=== PATIENT | male | born 1970 | race Caucasian/White ===

== ENCOUNTER 2018-10-31 07:29 | Inpatient (IN) | payer OTHER ==
[2018-10-31] MEDS: ASPIRIN 81 MG TAB PO (09:00)
[2018-10-31] MEDS: NITROGLYCERIN 2% 1 GM OINT PKT TD (09:01)
[2018-10-31 09:54] LABS: ADD MAN DIFF? NO
[2018-10-31 10:00] LABS: BASOPHILS % 0.6 % (0.0-2.0); EOSINOPHILS # 0.1 10^3/ul (0.0-0.5); EOSINOPHILS % 1.2 % (0.0-7.0); HEMATOCRIT 33.4 % (42.0-52.0); HEMOGLOBIN 10.3 g/dl (14.0-18.0); LYMPHOCYTES # 1.4 10^3/ul (0.8-2.9); MEAN CORPUSCULAR HEMOGLOBIN 27.9 pg (29.0-33.0); MEAN CORPUSCULAR HGB CONC 30.8 g/dl (32.0-37.0); MEAN CORPUSCULAR VOLUME 90.5 fl (82.0-101.0); MEAN PLATELET VOLUME 9.2 fl (7.4-10.4); MONOCYTE # 0.4 10^3/ul (0.3-0.9); MONOCYTES % 5.9 % (0.0-11.0); NEUTROPHIL # 4.5 10^3/ul (1.6-7.5); NEUTROPHILS % 70.1 % (39.0-77.0); PLATELET COUNT 166 10^3/UL (140-415); RED BLOOD COUNT 3.69 10^6/ul (4.70-6.10); RED CELL DISTRIBUTION WIDTH 14.2 % (11.5-14.5)
[2018-10-31 10:00] LABS: WHITE BLOOD COUNT 6.4 10^3/ul (4.8-10.8)
[2018-10-31 10:13] LABS: ALANINE AMINOTRANSFERASE 47 IU/L (13-69); ALBUMIN 3.9 g/dl (3.3-4.9); ALBUMIN/GLOBULIN RATIO 1.02; ALKALINE PHOSPHATASE 131 IU/L (42-121); ANION GAP 8 (5-13); ASPARTATE AMINO TRANSFERASE 37 IU/L (15-46); BILIRUBIN,INDIRECT 0.6 mg/dl (0-1.1); BILIRUBIN,TOTAL 0.6 mg/dl (0.2-1.3); BLOOD UREA NITROGEN 13 mg/dl (7-20); CALCIUM 9.3 mg/dl (8.4-10.2); CARBON DIOXIDE 31 mmol/L (21-31); CHLORIDE 103 mmol/L (97-110); CREATININE 0.75 mg/dl (0.61-1.24); Estimated GFR > 60 mL/min (>60); GLUCOSE 127 mg/dl (70-220); POTASSIUM 4.5 mmol/L (3.5-5.1); SODIUM 142 mmol/L (135-144); TOTAL PROTEIN 7.7 g/dl (6.1-8.1)
[2018-10-31 10:25] LABS: TROPONIN-I < 0.012 ng/ml (0.000-0.120)
[2018-10-31] MEDS: HYDROmorphONE 1 MG/ML SYG IV (10:39)
[2018-10-31] MEDS: ONDANSETRON 4 MG INJ IV (10:39)
[2018-10-31] MEDS: VANCOMYCIN 1 GM (PMX) 250 ML IVPB (10:39)
[2018-10-31 11:16] LABS: B-TYPE NATRIURETIC PEPTIDE 162 PG/ML (0-125)
[2018-10-31] MEDS ORDERED: ACETAMINOPHEN 325 MG TAB PO (11:30)
[2018-10-31] MEDS ORDERED: ONDANSETRON 4 MG INJ IV (11:30)
[2018-10-31] MEDS ORDERED: NACL 0.9% 3 ML SYG IV (13:00)
[2018-10-31] MEDS ORDERED: GLUCAGON 1 MG INJ IM (13:30)
[2018-10-31] MEDS ORDERED: GLUCOSE GEL 15 GRAM TUBE PO ×2 (13:30)
[2018-10-31] MEDS ORDERED: GLUCOSE GEL 15 GRAM TUBE BUCCAL (13:30)
[2018-10-31] MEDS ORDERED: DEXTROSE 50% 50 ML SYRINGE IV ×2 (13:30)
[2018-10-31] MEDS ORDERED: VANCOMYCIN IV PER PHARMACY XX (13:30)
[2018-10-31 13:52] LABS: TROPONIN-I < 0.012 ng/ml (0.000-0.120)
[2018-10-31] MEDS: HYDROCODONE/APAP (5/325) TAB PO (14:16)
[2018-10-31] MEDS: CEFEPIME 2GM/50 ML (PMX) 50 ML IVPB ×2 (14:16→20:54)
[2018-10-31] MEDS: ACETAMINOPHEN 325 MG TAB PO (15:14)
[2018-10-31] MEDS ORDERED: NITROGLYCERIN (SL) 0.4 MG TAB SL (16:00)
[2018-10-31] MEDS: FUROSEMIDE 20 MG INJ IV (16:11)
[2018-10-31] MEDS: VANCOMYCIN HCL 1.75 GM in SOD CHLORIDE 0.9% 500 ML IVPB (16:11)
[2018-10-31] MEDS: FUROSEMIDE 40 MG INJ IV (17:35)
[2018-10-31] MEDS: INSULIN ASPART [NOVOLOG] 3 ML PEN SC ×2 (17:39→21:00)
[2018-10-31 17:53] LABS: ADD UMIC YES; UR ASCORBIC ACID NEGATIVE (NEGATIVE); UR BILIRUBIN (Dip) NEGATIVE (NEGATIVE); UR BLOOD (Dip) 2+ mg/dL (NEGATIVE); UR CLARITY CLEAR (CLEAR); UR COLOR YELLOW (YELLOW); UR GLUCOSE (Dip) NEGATIVE (NEGATIVE); UR KETONES (Dip) NEGATIVE (NEGATIVE); UR LEUKOCYTE ESTERASE (Dip) NEGATIVE Leu/ul (NEGATIVE); UR NITRITE (Dip) NEGATIVE (NEGATIVE); UR RBC 27 /HPF (0-5); UR SPECIFIC GRAVITY (Dip) 1.014 (1.003-1.030); UR TOTAL PROTEIN (Dip) NEGATIVE (NEGATIVE); UR UROBILINOGEN (Dip) NEGATIVE (NEGATIVE); UR WBC 2 /HPF (0-5)
[2018-10-31] MEDS ORDERED: FUROSEMIDE 40 MG INJ IV (18:00)
[2018-10-31 18:48] LABS: TROPONIN-I < 0.012 ng/ml (0.000-0.120)
[2018-10-31] MEDS: traMADol 50 MG TAB PO (20:50)
[2018-10-31] MEDS ORDERED: CEFEPIME 2GM/50 ML (PMX) 50 ML IVPB (21:00)
[2018-10-31] MEDS: INSULIN GLARGINE [LANTus] (100 UNITS/ML) SYG SC (21:00)
[2018-11-01] MEDS: HYDROCODONE/APAP (5/325) TAB PO ×2 (01:26→08:04)
[2018-11-01 01:54] LABS: TROPONIN-I < 0.012 ng/ml (0.000-0.120)
[2018-11-01] MEDS: ACCU-CHEK XX (02:00)
[2018-11-01] MEDS: PANTOPRAZOLE (EC) 40 MG TAB PO (05:04)
[2018-11-01] MEDS: ACETAMINOPHEN 325 MG TAB PO (05:04)
[2018-11-01] MEDS: VANCOMYCIN HCL 1.75 GM in SOD CHLORIDE 0.9% 500 ML IVPB ×2 (05:16→16:24)
[2018-11-01 06:39] LABS: ADD MAN DIFF? NO
[2018-11-01 06:43] LABS: WHITE BLOOD COUNT 6.6 10^3/ul (4.8-10.8)
[2018-11-01 06:43] LABS: BASOPHILS % 0.3 % (0.0-2.0); EOSINOPHILS # 0.1 10^3/ul (0.0-0.5); EOSINOPHILS % 1.7 % (0.0-7.0); HEMATOCRIT 30.8 % (42.0-52.0); HEMOGLOBIN 9.8 g/dl (14.0-18.0); LYMPHOCYTES # 1.3 10^3/ul (0.8-2.9); LYMPHOCYTES % 19.9 % (15.0-51.0); MEAN CORPUSCULAR HEMOGLOBIN 28.4 pg (29.0-33.0); MEAN CORPUSCULAR HGB CONC 31.8 g/dl (32.0-37.0); MEAN CORPUSCULAR VOLUME 89.3 fl (82.0-101.0); MEAN PLATELET VOLUME 9.3 fl (7.4-10.4); MONOCYTE # 0.5 10^3/ul (0.3-0.9); NEUTROPHIL # 4.6 10^3/ul (1.6-7.5); NEUTROPHILS % 69.8 % (39.0-77.0); PLATELET COUNT 170 10^3/UL (140-415); RED BLOOD COUNT 3.45 10^6/ul (4.70-6.10); RED CELL DISTRIBUTION WIDTH 14.4 % (11.5-14.5)
[2018-11-01 07:01] LABS: HEMOGLOBIN A1C 6.5 % (0-5.9)
[2018-11-01 07:09] LABS: CHOL/HDL RATIO 2.8 RATIO; HDL CHOLESTEROL 42 mg/dl (28-71); LDL CHOLESTEROL,CALCULATED 60 mg/dl; TRIGLYCERIDES 94 mg/dl (0-149)
[2018-11-01 07:09] LABS: CHOLESTEROL 121 mg/dl (100-200)
[2018-11-01 07:11] LABS: ALANINE AMINOTRANSFERASE 44 IU/L (13-69); ALBUMIN 3.6 g/dl (3.3-4.9); ALKALINE PHOSPHATASE 114 IU/L (42-121); ANION GAP 6 (5-13); ASPARTATE AMINO TRANSFERASE 37 IU/L (15-46); BILIRUBIN,INDIRECT 0.7 mg/dl (0-1.1); BILIRUBIN,TOTAL 0.7 mg/dl (0.2-1.3); BLOOD UREA NITROGEN 16 mg/dl (7-20); CALCIUM 8.8 mg/dl (8.4-10.2); CARBON DIOXIDE 34 mmol/L (21-31); CHLORIDE 101 mmol/L (97-110); CREATININE 0.78 mg/dl (0.61-1.24); Estimated GFR > 60 mL/min (>60); GLUCOSE 118 mg/dl (70-220); PHOSPHORUS 4.9 mg/dl (2.5-4.9); POTASSIUM 4.3 mmol/L (3.5-5.1); SODIUM 141 mmol/L (135-144); TOTAL PROTEIN 7.2 g/dl (6.1-8.1)
[2018-11-01 07:16] LABS: TROPONIN-I < 0.012 ng/ml (0.000-0.120)
[2018-11-01] MEDS: ASPIRIN 81 MG TAB PO (08:04)
[2018-11-01] MEDS: CEFEPIME 2GM/50 ML (PMX) 50 ML IVPB ×2 (08:04→21:14)
[2018-11-01] MEDS: FUROSEMIDE 40 MG INJ IV (08:05)
[2018-11-01] MEDS: INSULIN ASPART [NOVOLOG] 3 ML PEN SC ×4 (08:41→20:29)
[2018-11-01] MEDS: traMADol 50 MG TAB PO ×2 (10:12→21:20)
[2018-11-01] MEDS: GABAPENTIN 300 MG CAP PO ×2 (14:10→20:30)
[2018-11-01] MEDS: morphine 2 MG INJ IV ×3 (14:11→23:24)
[2018-11-01 17:19] LABS: AADO2 Arterial 44.5 mmHg (7.0-24.0); Allen Test ACCEPTAB; Arterial Base Excess 7.8 mmol/L (-3.0-3); Arterial Blood Gas Oxygen Sat 96.5 mmHG (95.0-98.0); Arterial COHb 0.3 % (0.0-3.0); Arterial Fraction of Oxyhgb 95.9 % (93.0-99.0); Arterial HCO3 33.8 mmol/L (22.0-26.0); Arterial MetHb 0.3 % (0.0-1.5); MODE NASAL CANNULA; Site Right Radial
[2018-11-01] MEDS: TERAZOSIN 1 MG CAP PO (20:30)
[2018-11-01] MEDS: INSULIN GLARGINE [LANTus] (100 UNITS/ML) SYG SC (21:11)
[2018-11-01] MEDS: ALBUTEROL 0.083% (NEB) 2.5 MG/3 ML AMP HHN (23:03)
[2018-11-02] MEDS: ACCU-CHEK XX (01:41)
[2018-11-02 03:43] LABS: VANCOMYCIN,TROUGH 11.2 ug/ml (10.0-20.0)
[2018-11-02 03:51] LABS: ANION GAP 6 (5-13); BLOOD UREA NITROGEN 18 mg/dl (7-20); CALCIUM 9.2 mg/dl (8.4-10.2); CARBON DIOXIDE 33 mmol/L (21-31); CHLORIDE 98 mmol/L (97-110); CREATININE 0.78 mg/dl (0.61-1.24); Estimated GFR > 60 mL/min (>60); GLUCOSE 156 mg/dl (70-220); POTASSIUM 4.1 mmol/L (3.5-5.1); SODIUM 137 mmol/L (135-144)
[2018-11-02] MEDS: VANCOMYCIN HCL 1.75 GM in SOD CHLORIDE 0.9% 500 ML IVPB ×2 (04:44→17:16)
[2018-11-02] MEDS: PANTOPRAZOLE (EC) 40 MG TAB PO (05:34)
[2018-11-02] MEDS: morphine 2 MG INJ IV ×5 (05:35→23:02)
[2018-11-02 08:18] LABS: ADD MAN DIFF? NO
[2018-11-02 08:22] LABS: WHITE BLOOD COUNT 6.3 10^3/ul (4.8-10.8)
[2018-11-02 08:22] LABS: BASOPHILS % 0.3 % (0.0-2.0); EOSINOPHILS # 0.1 10^3/ul (0.0-0.5); EOSINOPHILS % 1.7 % (0.0-7.0); HEMOGLOBIN 10.4 g/dl (14.0-18.0); LYMPHOCYTES # 1.2 10^3/ul (0.8-2.9); MEAN CORPUSCULAR HEMOGLOBIN 28.5 pg (29.0-33.0); MEAN CORPUSCULAR HGB CONC 31.5 g/dl (32.0-37.0); MEAN CORPUSCULAR VOLUME 90.4 fl (82.0-101.0); MEAN PLATELET VOLUME 9.1 fl (7.4-10.4); MONOCYTE # 0.4 10^3/ul (0.3-0.9); MONOCYTES % 6.6 % (0.0-11.0); NEUTROPHIL # 4.6 10^3/ul (1.6-7.5); NEUTROPHILS % 72.2 % (39.0-77.0); PLATELET COUNT 158 10^3/UL (140-415); RED BLOOD COUNT 3.65 10^6/ul (4.70-6.10); RED CELL DISTRIBUTION WIDTH 14.2 % (11.5-14.5)
[2018-11-02 08:54] LABS: INR 1.01; PROTIME 13.4 Sec (11.9-14.9)
[2018-11-02] MEDS: CEFEPIME 2GM/50 ML (PMX) 50 ML IVPB ×2 (10:25→20:15)
[2018-11-02] MEDS: GABAPENTIN 300 MG CAP PO ×2 (10:31→20:13)
[2018-11-02] MEDS: ASPIRIN 81 MG TAB PO (10:32)
[2018-11-02] MEDS: FUROSEMIDE 40 MG INJ IV (10:33)
[2018-11-02] MEDS: INSULIN ASPART [NOVOLOG] 3 ML PEN SC ×4 (11:02→20:19)
[2018-11-02] MEDS: LINAGLIPTIN 5 MG TABLET PO (14:40)
[2018-11-02] MEDS: ENOXAPARIN 40 MG/0.4 ML SYG SC (14:49)
[2018-11-02] MEDS: TERAZOSIN 1 MG CAP PO (20:15)
[2018-11-02] MEDS: INSULIN GLARGINE [LANTus] (100 UNITS/ML) SYG SC (20:34)
[2018-11-02] MEDS: ALBUTEROL 0.083% (NEB) 2.5 MG/3 ML AMP HHN (22:00)
[2018-11-03] MEDS: ACCU-CHEK XX (01:34)
[2018-11-03] MEDS: VANCOMYCIN HCL 1.75 GM in SOD CHLORIDE 0.9% 500 ML IVPB ×2 (03:37→15:44)
[2018-11-03] MEDS: morphine 2 MG INJ IV ×4 (03:38→19:56)
[2018-11-03] MEDS: PANTOPRAZOLE (EC) 40 MG TAB PO (05:55)
[2018-11-03] MEDS: IBUPROFEN 600 MG TAB PO (05:55)
[2018-11-03 06:04] LABS: ADD MAN DIFF? NO
[2018-11-03 06:11] LABS: BASOPHILS % 0.4 % (0.0-2.0); EOSINOPHILS # 0.2 10^3/ul (0.0-0.5); EOSINOPHILS % 2.2 % (0.0-7.0); HEMATOCRIT 32.5 % (42.0-52.0); LYMPHOCYTES # 1.5 10^3/ul (0.8-2.9); LYMPHOCYTES % 22.6 % (15.0-51.0); MEAN CORPUSCULAR HEMOGLOBIN 28.1 pg (29.0-33.0); MEAN CORPUSCULAR HGB CONC 30.8 g/dl (32.0-37.0); MEAN CORPUSCULAR VOLUME 91.3 fl (82.0-101.0); MEAN PLATELET VOLUME 9.6 fl (7.4-10.4); MONOCYTE # 0.4 10^3/ul (0.3-0.9); MONOCYTES % 6.6 % (0.0-11.0); NEUTROPHIL # 4.5 10^3/ul (1.6-7.5); NEUTROPHILS % 67.8 % (39.0-77.0); PLATELET COUNT 165 10^3/UL (140-415); RED BLOOD COUNT 3.56 10^6/ul (4.70-6.10); RED CELL DISTRIBUTION WIDTH 14.4 % (11.5-14.5)
[2018-11-03 06:11] LABS: WHITE BLOOD COUNT 6.7 10^3/ul (4.8-10.8)
[2018-11-03 07:02] LABS: IRON 68 ug/dl (35-150)
[2018-11-03 07:12] LABS: % IRON SATURATION 19 % SAT (22-52); TOTAL IRON BINDING CAPACITY 351 ug/dl (241-421)
[2018-11-03 07:18] LABS: ANION GAP 5 (5-13); BLOOD UREA NITROGEN 20 mg/dl (7-20); CARBON DIOXIDE 34 mmol/L (21-31); CHLORIDE 99 mmol/L (97-110); CREATININE 0.77 mg/dl (0.61-1.24); Estimated GFR > 60 mL/min (>60); GLUCOSE 151 mg/dl (70-220); POTASSIUM 4.1 mmol/L (3.5-5.1); SODIUM 138 mmol/L (135-144)
[2018-11-03] MEDS: INSULIN ASPART [NOVOLOG] 3 ML PEN SC ×4 (07:55→19:54)
[2018-11-03] MEDS: LINAGLIPTIN 5 MG TABLET PO (08:06)
[2018-11-03] MEDS: GABAPENTIN 300 MG CAP PO ×2 (08:06→19:56)
[2018-11-03] MEDS: ASPIRIN 81 MG TAB PO (08:06)
[2018-11-03] MEDS: FUROSEMIDE 40 MG INJ IV ×2 (08:07→17:32)
[2018-11-03] MEDS: ENOXAPARIN 40 MG/0.4 ML SYG SC (08:29)
[2018-11-03] MEDS: CEFEPIME 2GM/50 ML (PMX) 50 ML IVPB ×2 (09:15→19:55)
[2018-11-03] MEDS: ALBUTEROL 0.083% (NEB) 2.5 MG/3 ML AMP HHN ×2 (09:24→22:11)
[2018-11-03 12:48] LABS: OCCULT BLOOD STOOL NEGATIVE (NEGATIVE)
[2018-11-03] MEDS: TERAZOSIN 1 MG CAP PO (19:56)
[2018-11-03] MEDS: INSULIN GLARGINE [LANTus] (100 UNITS/ML) SYG SC (20:02)
[2018-11-03] MEDS: SOD FERRIC GLUC COMPLX 125 MG in SOD CHLORIDE 0.9% 100 ML IVPB (21:49)
[2018-11-03] MEDS: HYDROCODONE/APAP (5/325) TAB PO (22:10)
[2018-11-04] MEDS: ACCU-CHEK XX (01:58)
[2018-11-04] MEDS: morphine 2 MG INJ IV ×4 (03:01→19:59)
[2018-11-04] MEDS: VANCOMYCIN HCL 1.75 GM in SOD CHLORIDE 0.9% 500 ML IVPB ×2 (04:28→15:35)
[2018-11-04] MEDS: FUROSEMIDE 40 MG INJ IV ×2 (04:28→17:29)
[2018-11-04] MEDS: PANTOPRAZOLE (EC) 40 MG TAB PO (04:28)
[2018-11-04 06:23] LABS: ADD MAN DIFF? NO
[2018-11-04 06:34] LABS: WHITE BLOOD COUNT 6.3 10^3/ul (4.8-10.8)
[2018-11-04 06:34] LABS: BASOPHILS % 0.5 % (0.0-2.0); EOSINOPHILS # 0.2 10^3/ul (0.0-0.5); EOSINOPHILS % 2.7 % (0.0-7.0); HEMATOCRIT 34.9 % (42.0-52.0); HEMOGLOBIN 10.6 g/dl (14.0-18.0); LYMPHOCYTES # 1.6 10^3/ul (0.8-2.9); LYMPHOCYTES % 25.7 % (15.0-51.0); MEAN CORPUSCULAR HEMOGLOBIN 27.6 pg (29.0-33.0); MEAN CORPUSCULAR HGB CONC 30.4 g/dl (32.0-37.0); MEAN CORPUSCULAR VOLUME 90.9 fl (82.0-101.0); MEAN PLATELET VOLUME 9.5 fl (7.4-10.4); MONOCYTE # 0.5 10^3/ul (0.3-0.9); MONOCYTES % 7.3 % (0.0-11.0); NEUTROPHILS % 63.6 % (39.0-77.0); PLATELET COUNT 194 10^3/UL (140-415); RED BLOOD COUNT 3.84 10^6/ul (4.70-6.10); RED CELL DISTRIBUTION WIDTH 14.6 % (11.5-14.5)
[2018-11-04 06:53] LABS: ANION GAP 9 (5-13); BLOOD UREA NITROGEN 24 mg/dl (7-20); CALCIUM 9.2 mg/dl (8.4-10.2); CARBON DIOXIDE 33 mmol/L (21-31); CHLORIDE 99 mmol/L (97-110); Estimated GFR > 60 mL/min (>60); GLUCOSE 155 mg/dl (70-220); SODIUM 141 mmol/L (135-144)
[2018-11-04] MEDS: INSULIN ASPART [NOVOLOG] 3 ML PEN SC ×4 (07:52→20:06)
[2018-11-04] MEDS: GABAPENTIN 300 MG CAP PO ×2 (08:08→19:59)
[2018-11-04] MEDS: ASPIRIN 81 MG TAB PO (08:08)
[2018-11-04] MEDS: LINAGLIPTIN 5 MG TABLET PO (08:08)
[2018-11-04] MEDS: ENOXAPARIN 40 MG/0.4 ML SYG SC (08:22)
[2018-11-04] MEDS: CEFEPIME 2GM/50 ML (PMX) 50 ML IVPB ×2 (10:39→20:21)
[2018-11-04] MEDS: SOD FERRIC GLUC COMPLX 125 MG in SOD CHLORIDE 0.9% 100 ML IVPB (12:29)
[2018-11-04] MEDS: ALBUTEROL 0.083% (NEB) 2.5 MG/3 ML AMP HHN ×2 (13:06→20:50)
[2018-11-04] MEDS: HYDROCODONE/APAP (5/325) TAB PO (15:35)
[2018-11-04] MEDS: TERAZOSIN 1 MG CAP PO (19:59)
[2018-11-04] MEDS: INSULIN GLARGINE [LANTus] (100 UNITS/ML) SYG SC (20:05)
[2018-11-05] MEDS: morphine 2 MG INJ IV ×6 (00:05→23:23)
[2018-11-05] MEDS: HYDROCODONE/APAP (5/325) TAB PO (01:48)
[2018-11-05] MEDS: ACCU-CHEK XX (01:53)
[2018-11-05] MEDS: VANCOMYCIN HCL 1.75 GM in SOD CHLORIDE 0.9% 500 ML IVPB ×2 (04:19→16:04)
[2018-11-05] MEDS: PANTOPRAZOLE (EC) 40 MG TAB PO (06:05)
[2018-11-05] MEDS: FUROSEMIDE 40 MG INJ IV ×2 (06:05→17:38)
[2018-11-05 06:11] LABS: ADD MAN DIFF? NO
[2018-11-05 06:22] LABS: BASOPHILS % 0.3 % (0.0-2.0); EOSINOPHILS # 0.2 10^3/ul (0.0-0.5); EOSINOPHILS % 3.2 % (0.0-7.0); HEMATOCRIT 31.7 % (42.0-52.0); LYMPHOCYTES # 1.7 10^3/ul (0.8-2.9); LYMPHOCYTES % 25.8 % (15.0-51.0); MEAN CORPUSCULAR HEMOGLOBIN 28.2 pg (29.0-33.0); MEAN CORPUSCULAR HGB CONC 31.5 g/dl (32.0-37.0); MEAN CORPUSCULAR VOLUME 89.5 fl (82.0-101.0); MEAN PLATELET VOLUME 9.4 fl (7.4-10.4); MONOCYTE # 0.5 10^3/ul (0.3-0.9); MONOCYTES % 7.1 % (0.0-11.0); NEUTROPHIL # 4.2 10^3/ul (1.6-7.5); NEUTROPHILS % 63.3 % (39.0-77.0); PLATELET COUNT 175 10^3/UL (140-415); RED BLOOD COUNT 3.54 10^6/ul (4.70-6.10); RED CELL DISTRIBUTION WIDTH 14.6 % (11.5-14.5)
[2018-11-05 06:22] LABS: WHITE BLOOD COUNT 6.6 10^3/ul (4.8-10.8)
[2018-11-05 06:51] LABS: ANION GAP 7 (5-13); BLOOD UREA NITROGEN 21 mg/dl (7-20); CALCIUM 9.1 mg/dl (8.4-10.2); CARBON DIOXIDE 31 mmol/L (21-31); CHLORIDE 102 mmol/L (97-110); CREATININE 0.64 mg/dl (0.61-1.24); Estimated GFR > 60 mL/min (>60); GLUCOSE 117 mg/dl (70-220); POTASSIUM 4.2 mmol/L (3.5-5.1); SODIUM 140 mmol/L (135-144)
[2018-11-05] MEDS: INSULIN ASPART [NOVOLOG] 3 ML PEN SC ×4 (08:00→20:51)
[2018-11-05] MEDS: ASPIRIN 81 MG TAB PO (08:15)
[2018-11-05] MEDS: LINAGLIPTIN 5 MG TABLET PO (08:16)
[2018-11-05] MEDS: GABAPENTIN 300 MG CAP PO ×2 (08:16→20:46)
[2018-11-05] MEDS: CEFEPIME 2GM/50 ML (PMX) 50 ML IVPB (08:44)
[2018-11-05] MEDS: ENOXAPARIN 40 MG/0.4 ML SYG SC (08:47)
[2018-11-05] MEDS: SOD FERRIC GLUC COMPLX 125 MG in SOD CHLORIDE 0.9% 100 ML IVPB (13:41)
[2018-11-05] MEDS: TERAZOSIN 1 MG CAP PO (20:47)
[2018-11-05] MEDS: INSULIN GLARGINE [LANTus] (100 UNITS/ML) SYG SC (20:50)
[2018-11-05] MEDS: ALBUTEROL 0.083% (NEB) 2.5 MG/3 ML AMP HHN (22:13)
[2018-11-06] MEDS: ACETAMINOPHEN 325 MG TAB PO (01:21)
[2018-11-06] MEDS: ACCU-CHEK XX (02:00)
[2018-11-06] MEDS: VANCOMYCIN HCL 1.75 GM in SOD CHLORIDE 0.9% 500 ML IVPB (03:46)
[2018-11-06] MEDS: morphine 2 MG INJ IV ×5 (03:46→22:33)
[2018-11-06] MEDS: PANTOPRAZOLE (EC) 40 MG TAB PO (05:38)
[2018-11-06] MEDS: FUROSEMIDE 40 MG INJ IV ×3 (05:39→17:00)
[2018-11-06 07:16] LABS: ANION GAP 10 (5-13); BLOOD UREA NITROGEN 23 mg/dl (7-20); CALCIUM 8.7 mg/dl (8.4-10.2); CARBON DIOXIDE 29 mmol/L (21-31); CHLORIDE 102 mmol/L (97-110); CREATININE 0.68 mg/dl (0.61-1.24); Estimated GFR > 60 mL/min (>60); GLUCOSE 128 mg/dl (70-220); POTASSIUM 3.7 mmol/L (3.5-5.1); SODIUM 141 mmol/L (135-144)
[2018-11-06] MEDS: INSULIN ASPART [NOVOLOG] 3 ML PEN SC ×4 (08:00→20:14)
[2018-11-06] MEDS: GABAPENTIN 300 MG CAP PO ×2 (08:37→20:13)
[2018-11-06] MEDS: LINAGLIPTIN 5 MG TABLET PO (08:37)
[2018-11-06] MEDS: ASPIRIN 81 MG TAB PO (08:37)
[2018-11-06] MEDS: ENOXAPARIN 40 MG/0.4 ML SYG SC (08:41)
[2018-11-06] MEDS: DOXYCYCLINE 100 MG TAB PO ×2 (09:52→20:12)
[2018-11-06 11:04] LABS: ANION GAP 10 (5-13); BLOOD UREA NITROGEN 22 mg/dl (7-20); CALCIUM 8.8 mg/dl (8.4-10.2); CARBON DIOXIDE 30 mmol/L (21-31); CHLORIDE 101 mmol/L (97-110); CREATININE 0.67 mg/dl (0.61-1.24); Estimated GFR > 60 mL/min (>60); GLUCOSE 175 mg/dl (70-220); POTASSIUM 3.8 mmol/L (3.5-5.1); SODIUM 141 mmol/L (135-144)
[2018-11-06] MEDS: ALBUTEROL 0.083% (NEB) 2.5 MG/3 ML AMP HHN ×2 (12:41→22:28)
[2018-11-06] MEDS: HYDROCODONE/APAP (5/325) TAB PO (16:36)
[2018-11-06] MEDS: TERAZOSIN 1 MG CAP PO (20:13)
[2018-11-06] MEDS: INSULIN GLARGINE [LANTus] (100 UNITS/ML) SYG SC (20:15)
[2018-11-07] MEDS: ACCU-CHEK XX (02:00)
[2018-11-07] MEDS: HYDROCODONE/APAP (5/325) TAB PO ×2 (02:25→23:20)
[2018-11-07] MEDS: ALBUTEROL 0.083% (NEB) 2.5 MG/3 ML AMP HHN ×3 (04:50→22:19)
[2018-11-07] MEDS: PANTOPRAZOLE (EC) 40 MG TAB PO (05:13)
[2018-11-07 05:50] LABS: ADD MAN DIFF? NO
[2018-11-07] MEDS: FUROSEMIDE 40 MG INJ IV ×3 (05:55→17:17)
[2018-11-07 05:56] LABS: WHITE BLOOD COUNT 6.9 10^3/ul (4.8-10.8)
[2018-11-07 05:56] LABS: BASOPHILS % 0.4 % (0.0-2.0); EOSINOPHILS # 0.2 10^3/ul (0.0-0.5); EOSINOPHILS % 2.2 % (0.0-7.0); HEMATOCRIT 32.7 % (42.0-52.0); HEMOGLOBIN 10.1 g/dl (14.0-18.0); LYMPHOCYTES # 1.5 10^3/ul (0.8-2.9); LYMPHOCYTES % 20.9 % (15.0-51.0); MEAN CORPUSCULAR HEMOGLOBIN 28.2 pg (29.0-33.0); MEAN CORPUSCULAR HGB CONC 30.9 g/dl (32.0-37.0); MEAN CORPUSCULAR VOLUME 91.3 fl (82.0-101.0); MEAN PLATELET VOLUME 9.8 fl (7.4-10.4); MONOCYTE # 0.5 10^3/ul (0.3-0.9); MONOCYTES % 7.6 % (0.0-11.0); NEUTROPHIL # 4.8 10^3/ul (1.6-7.5); NEUTROPHILS % 68.6 % (39.0-77.0); PLATELET COUNT 161 10^3/UL (140-415); RED BLOOD COUNT 3.58 10^6/ul (4.70-6.10); RED CELL DISTRIBUTION WIDTH 14.6 % (11.5-14.5)
[2018-11-07 06:11] LABS: ANION GAP 6 (5-13); BLOOD UREA NITROGEN 27 mg/dl (7-20); CALCIUM 9.3 mg/dl (8.4-10.2); CARBON DIOXIDE 33 mmol/L (21-31); CHLORIDE 102 mmol/L (97-110); CREATININE 0.74 mg/dl (0.61-1.24); Estimated GFR > 60 mL/min (>60); GLUCOSE 131 mg/dl (70-220); POTASSIUM 3.7 mmol/L (3.5-5.1); SODIUM 141 mmol/L (135-144)
[2018-11-07 06:13] LABS: PHOSPHORUS 4.9 mg/dl (2.5-4.9)
[2018-11-07 06:13] LABS: MAGNESIUM 1.9 mg/dl (1.7-2.5)
[2018-11-07] MEDS: morphine 2 MG INJ IV ×4 (07:53→21:14)
[2018-11-07] MEDS: INSULIN ASPART [NOVOLOG] 3 ML PEN SC ×4 (07:56→21:00)
[2018-11-07] MEDS: DOXYCYCLINE 100 MG TAB PO ×2 (07:56→21:13)
[2018-11-07] MEDS: LINAGLIPTIN 5 MG TABLET PO (07:56)
[2018-11-07] MEDS: GABAPENTIN 300 MG CAP PO ×2 (07:56→21:13)
[2018-11-07] MEDS: ASPIRIN 81 MG TAB PO (07:56)
[2018-11-07] MEDS: ENOXAPARIN 40 MG/0.4 ML SYG SC (07:59)
[2018-11-07] MEDS: TERAZOSIN 1 MG CAP PO (21:13)
[2018-11-07] MEDS: INSULIN GLARGINE [LANTus] (100 UNITS/ML) SYG SC (21:15)
[2018-11-08] MEDS: morphine 2 MG INJ IV ×5 (01:29→20:45)
[2018-11-08] MEDS: ACCU-CHEK XX (02:00)
[2018-11-08] MEDS: IBUPROFEN 600 MG TAB PO (03:28)
[2018-11-08] MEDS: PANTOPRAZOLE (EC) 40 MG TAB PO (05:49)
[2018-11-08] MEDS: HYDROCODONE/APAP (5/325) TAB PO ×2 (05:50→23:16)
[2018-11-08] MEDS: FUROSEMIDE 40 MG INJ IV ×2 (05:50→17:51)
[2018-11-08 06:06] LABS: ANION GAP 7 (5-13); BLOOD UREA NITROGEN 29 mg/dl (7-20); CALCIUM 9.6 mg/dl (8.4-10.2); CARBON DIOXIDE 33 mmol/L (21-31); CHLORIDE 100 mmol/L (97-110); CREATININE 0.79 mg/dl (0.61-1.24); Estimated GFR > 60 mL/min (>60); GLUCOSE 138 mg/dl (70-220); POTASSIUM 3.7 mmol/L (3.5-5.1); SODIUM 140 mmol/L (135-144)
[2018-11-08] MEDS: INSULIN ASPART [NOVOLOG] 3 ML PEN SC ×4 (07:50→20:43)
[2018-11-08] MEDS: DOXYCYCLINE 100 MG TAB PO ×2 (08:05→20:44)
[2018-11-08] MEDS: GABAPENTIN 300 MG CAP PO ×2 (08:05→20:45)
[2018-11-08] MEDS: ASPIRIN 81 MG TAB PO (08:05)
[2018-11-08] MEDS: LINAGLIPTIN 5 MG TABLET PO (08:05)
[2018-11-08] MEDS: ENOXAPARIN 40 MG/0.4 ML SYG SC (08:06)
[2018-11-08] MEDS: DOCUSATE SODIUM 100 MG CAP PO (09:19)
[2018-11-08] MEDS: ALBUTEROL 0.083% (NEB) 2.5 MG/3 ML AMP HHN (14:07)
[2018-11-08] MEDS: TERAZOSIN 1 MG CAP PO (20:45)
[2018-11-08] MEDS: INSULIN GLARGINE [LANTus] (100 UNITS/ML) SYG SC (20:50)
[2018-11-09] MEDS: morphine 2 MG INJ IV ×5 (01:40→20:42)
[2018-11-09] MEDS: ACCU-CHEK XX (02:00)
[2018-11-09] MEDS: ALBUTEROL 0.083% (NEB) 2.5 MG/3 ML AMP HHN ×3 (02:15→21:51)
[2018-11-09] MEDS: PANTOPRAZOLE (EC) 40 MG TAB PO (06:15)
[2018-11-09] MEDS: FUROSEMIDE 40 MG INJ IV ×3 (06:17→17:21)
[2018-11-09 06:44] LABS: ANION GAP 7 (5-13); BLOOD UREA NITROGEN 29 mg/dl (7-20); CALCIUM 9.6 mg/dl (8.4-10.2); CARBON DIOXIDE 32 mmol/L (21-31); CHLORIDE 102 mmol/L (97-110); CREATININE 0.66 mg/dl (0.61-1.24); Estimated GFR > 60 mL/min (>60); GLUCOSE 131 mg/dl (70-220); POTASSIUM 3.7 mmol/L (3.5-5.1); SODIUM 141 mmol/L (135-144)
[2018-11-09 07:19] LABS: MAGNESIUM 1.8 mg/dl (1.7-2.5)
[2018-11-09] MEDS: INSULIN ASPART [NOVOLOG] 3 ML PEN SC ×4 (08:00→20:25)
[2018-11-09] MEDS: GABAPENTIN 300 MG CAP PO ×2 (08:12→20:24)
[2018-11-09] MEDS: ASPIRIN 81 MG TAB PO (08:13)
[2018-11-09] MEDS: LINAGLIPTIN 5 MG TABLET PO (08:13)
[2018-11-09] MEDS: DOXYCYCLINE 100 MG TAB PO ×2 (08:13→20:24)
[2018-11-09] MEDS: ENOXAPARIN 40 MG/0.4 ML SYG SC (08:15)
[2018-11-09] MEDS: HYDROCODONE/APAP (5/325) TAB PO (14:52)
[2018-11-09] MEDS: TERAZOSIN 1 MG CAP PO (20:25)
[2018-11-09] MEDS: INSULIN GLARGINE [LANTus] (100 UNITS/ML) SYG SC (20:28)
[2018-11-10] MEDS: morphine 2 MG INJ IV ×6 (01:23→22:45)
[2018-11-10] MEDS: ACCU-CHEK XX (01:34)
[2018-11-10] MEDS: PANTOPRAZOLE (EC) 40 MG TAB PO (05:57)
[2018-11-10] MEDS: FUROSEMIDE 40 MG INJ IV ×2 (05:58→17:19)
[2018-11-10 06:22] LABS: ANION GAP 7 (5-13); BLOOD UREA NITROGEN 29 mg/dl (7-20); CALCIUM 9.6 mg/dl (8.4-10.2); CARBON DIOXIDE 33 mmol/L (21-31); CHLORIDE 100 mmol/L (97-110); CREATININE 0.68 mg/dl (0.61-1.24); Estimated GFR > 60 mL/min (>60); GLUCOSE 136 mg/dl (70-220); POTASSIUM 3.6 mmol/L (3.5-5.1); SODIUM 140 mmol/L (135-144)
[2018-11-10] MEDS: INSULIN ASPART [NOVOLOG] 3 ML PEN SC ×4 (07:58→21:00)
[2018-11-10] MEDS: DOXYCYCLINE 100 MG TAB PO (08:07)
[2018-11-10] MEDS: GABAPENTIN 300 MG CAP PO ×2 (08:07→20:54)
[2018-11-10] MEDS: LINAGLIPTIN 5 MG TABLET PO (08:08)
[2018-11-10] MEDS: ASPIRIN 81 MG TAB PO (08:08)
[2018-11-10] MEDS: ENOXAPARIN 40 MG/0.4 ML SYG SC (08:09)
[2018-11-10] MEDS: ALBUTEROL 0.083% (NEB) 2.5 MG/3 ML AMP HHN (10:09)
[2018-11-10] MEDS: HYDROCODONE/APAP (5/325) TAB PO (17:18)
[2018-11-10] MEDS: INSULIN GLARGINE [LANTus] (100 UNITS/ML) SYG SC (20:52)
[2018-11-10] MEDS: TERAZOSIN 1 MG CAP PO (21:00)
[2018-11-11] MEDS: ALBUTEROL 0.083% (NEB) 2.5 MG/3 ML AMP HHN ×2 (00:37→22:11)
[2018-11-11] MEDS: ONDANSETRON 4 MG INJ IV (01:30)
[2018-11-11] MEDS: ACCU-CHEK XX (01:56)
[2018-11-11] MEDS: morphine 2 MG INJ IV ×5 (02:50→21:27)
[2018-11-11] MEDS: HYDROCODONE/APAP (5/325) TAB PO ×3 (05:27→23:42)
[2018-11-11] MEDS: PANTOPRAZOLE (EC) 40 MG TAB PO (06:11)
[2018-11-11] MEDS: FUROSEMIDE 40 MG INJ IV ×2 (06:16→17:35)
[2018-11-11] MEDS: INSULIN ASPART [NOVOLOG] 3 ML PEN SC ×4 (07:52→20:41)
[2018-11-11] MEDS: GABAPENTIN 300 MG CAP PO ×2 (08:21→21:27)
[2018-11-11] MEDS: ASPIRIN 81 MG TAB PO (08:22)
[2018-11-11] MEDS: LINAGLIPTIN 5 MG TABLET PO (08:22)
[2018-11-11] MEDS: ENOXAPARIN 40 MG/0.4 ML SYG SC (08:25)
[2018-11-11] MEDS: INSULIN GLARGINE [LANTus] (100 UNITS/ML) SYG SC (20:38)
[2018-11-11] MEDS: TERAZOSIN 1 MG CAP PO (21:28)
[2018-11-12] MEDS: ACCU-CHEK XX (01:27)
[2018-11-12] MEDS: morphine 2 MG INJ IV ×6 (01:41→23:53)
[2018-11-12] MEDS: ALBUTEROL 0.083% (NEB) 2.5 MG/3 ML AMP HHN ×2 (03:20→20:37)
[2018-11-12] MEDS: PANTOPRAZOLE (EC) 40 MG TAB PO (05:43)
[2018-11-12] MEDS: FUROSEMIDE 40 MG INJ IV (06:02)
[2018-11-12] MEDS: INSULIN ASPART [NOVOLOG] 3 ML PEN SC ×4 (08:00→20:29)
[2018-11-12] MEDS: ASPIRIN 81 MG TAB PO (08:08)
[2018-11-12] MEDS: LINAGLIPTIN 5 MG TABLET PO (08:08)
[2018-11-12] MEDS: GABAPENTIN 300 MG CAP PO ×2 (08:08→20:23)
[2018-11-12] MEDS: HYDROCODONE/APAP (5/325) TAB PO (08:08)
[2018-11-12] MEDS: ENOXAPARIN 40 MG/0.4 ML SYG SC (08:10)
[2018-11-12 08:13] LABS: ANION GAP 9 (5-13); BLOOD UREA NITROGEN 29 mg/dl (7-20); CALCIUM 9.8 mg/dl (8.4-10.2); CARBON DIOXIDE 32 mmol/L (21-31); CHLORIDE 99 mmol/L (97-110); CREATININE 0.75 mg/dl (0.61-1.24); Estimated GFR > 60 mL/min (>60); GLUCOSE 144 mg/dl (70-220); POTASSIUM 3.3 mmol/L (3.5-5.1); SODIUM 140 mmol/L (135-144)
[2018-11-12] MEDS: POTASSIUM CHLORIDE (SR) 20 MEQ TAB PO (12:38)
[2018-11-12] MEDS: FUROSEMIDE 40 MG TAB PO (17:24)
[2018-11-12] MEDS: TERAZOSIN 1 MG CAP PO (20:24)
[2018-11-12] MEDS: INSULIN GLARGINE [LANTus] (100 UNITS/ML) SYG SC (20:28)
[2018-11-13] MEDS: ACCU-CHEK XX (01:50)
[2018-11-13] MEDS: HYDROCODONE/APAP (5/325) TAB PO (02:36)
[2018-11-13] MEDS: morphine 2 MG INJ IV ×3 (04:30→15:01)
[2018-11-13] MEDS: PANTOPRAZOLE (EC) 40 MG TAB PO (05:27)
[2018-11-13] MEDS: FUROSEMIDE 40 MG TAB PO (05:28)
[2018-11-13 06:07] LABS: ANION GAP 9 (5-13); BLOOD UREA NITROGEN 26 mg/dl (7-20); CALCIUM 9.7 mg/dl (8.4-10.2); CARBON DIOXIDE 29 mmol/L (21-31); CHLORIDE 100 mmol/L (97-110); CREATININE 0.72 mg/dl (0.61-1.24); Estimated GFR > 60 mL/min (>60); GLUCOSE 165 mg/dl (70-220); POTASSIUM 3.6 mmol/L (3.5-5.1); SODIUM 138 mmol/L (135-144)
[2018-11-13] MEDS: INSULIN ASPART [NOVOLOG] 3 ML PEN SC ×2 (08:00→12:07)
[2018-11-13] MEDS: LINAGLIPTIN 5 MG TABLET PO (08:33)
[2018-11-13] MEDS: ASPIRIN 81 MG TAB PO (08:33)
[2018-11-13] MEDS: GABAPENTIN 300 MG CAP PO (08:33)
[2018-11-13] MEDS: ENOXAPARIN 40 MG/0.4 ML SYG SC (08:35)
== END 2018-11-13 16:18 | disposition home or self-care (01) | DRG 292 ==
LOC: 2NE 11-04 22:55 → E/R 07:29 → TEL 11:14
DX: I11.0 Hypertensive heart disease with heart failure (principal); L03.115 Cellulitis of right lower limb; Z68.43 Body mass index [BMI] 50.0-59.9, adult; L03.116 Cellulitis of left lower limb; E11.8 Type 2 diabetes mellitus with unspecified complications; Z79.4 Long term (current) use of insulin; E66.01 Morbid (severe) obesity due to excess calories; I50.33 Acute on chronic diastolic (congestive) heart failure; I25.10 Atherosclerotic heart disease of native coronary artery without angina pectoris; N40.0 Benign prostatic hyperplasia without lower urinary tract symptoms; D50.9 Iron deficiency anemia, unspecified; Z95.5 Presence of coronary angioplasty implant and graft; M54.40 Lumbago with sciatica, unspecified side; M47.897 Other spondylosis, lumbosacral region; M25.519 Pain in unspecified shoulder; K43.9 Ventral hernia without obstruction or gangrene
CPT/HCPCS: 36415; 36600; 70450; 71045; 72131; 73030; 76870; 80048; 80053; 80061; 80202; 81001; 82270; 82803; 82962; 83036; 83540; 83735; 83880; 84100; 84443; 84484; 85025; 85610; 85730; 87040-91; 87070; 87081; 87086; 93005; 93306; 93970; 93971; 94640; 94664; 96374; 96375; 97110; 97116; 97163; 97530; 99285-25

== ENCOUNTER 2018-11-21 23:43 | Observation (INO) | payer OTHER ==
[2018-11-22] MEDS: ONDANSETRON 4 MG INJ IV (00:14)
[2018-11-22] MEDS: morphine 4 MG/ML VIAL IV (00:15)
[2018-11-22 00:19] LABS: ADD MAN DIFF? NO
[2018-11-22 00:25] LABS: WHITE BLOOD COUNT 8.4 10^3/ul (4.8-10.8)
[2018-11-22 00:25] LABS: BASOPHILS % 0.5 % (0.0-2.0); EOSINOPHILS # 0.1 10^3/ul (0.0-0.5); EOSINOPHILS % 1.3 % (0.0-7.0); HEMATOCRIT 34.5 % (42.0-52.0); HEMOGLOBIN 10.8 g/dl (14.0-18.0); LYMPHOCYTES % 23.7 % (15.0-51.0); MEAN CORPUSCULAR HEMOGLOBIN 27.8 pg (29.0-33.0); MEAN CORPUSCULAR HGB CONC 31.3 g/dl (32.0-37.0); MEAN CORPUSCULAR VOLUME 88.9 fl (82.0-101.0); MEAN PLATELET VOLUME 9.3 fl (7.4-10.4); MONOCYTE # 0.4 10^3/ul (0.3-0.9); NEUTROPHIL # 5.8 10^3/ul (1.6-7.5); NEUTROPHILS % 69.3 % (39.0-77.0); PLATELET COUNT 187 10^3/UL (140-415); RED BLOOD COUNT 3.88 10^6/ul (4.70-6.10); RED CELL DISTRIBUTION WIDTH 14.3 % (11.5-14.5)
[2018-11-22 00:44] LABS: ALANINE AMINOTRANSFERASE 47 IU/L (13-69); ALBUMIN/GLOBULIN RATIO 0.97; ALKALINE PHOSPHATASE 126 IU/L (42-121); ANION GAP 5 (5-13); ASPARTATE AMINO TRANSFERASE 38 IU/L (15-46); BILIRUBIN,INDIRECT 0.7 mg/dl (0-1.1); BILIRUBIN,TOTAL 0.7 mg/dl (0.2-1.3); BLOOD UREA NITROGEN 19 mg/dl (7-20); CALCIUM 9.4 mg/dl (8.4-10.2); CARBON DIOXIDE 32 mmol/L (21-31); CHLORIDE 101 mmol/L (97-110); CREATININE 0.75 mg/dl (0.61-1.24); Estimated GFR > 60 mL/min (>60); GLUCOSE 138 mg/dl (70-220); LIPASE 429 U/L (23-300); POTASSIUM 3.8 mmol/L (3.5-5.1); SODIUM 138 mmol/L (135-144); TOTAL PROTEIN 8.1 g/dl (6.1-8.1)
[2018-11-22 00:56] LABS: B-TYPE NATRIURETIC PEPTIDE 62 PG/ML (0-125); TROPONIN-I < 0.012 ng/ml (0.000-0.120)
[2018-11-22] MEDS ORDERED: ACCU-CHEK XX (02:00)
[2018-11-22] MEDS ORDERED: ACETAMINOPHEN 325 MG TAB PO ×2 (02:30→05:00)
[2018-11-22] MEDS ORDERED: ONDANSETRON 4 MG INJ IV (02:30)
[2018-11-22] MEDS ORDERED: NITROGLYCERIN (SL) 0.4 MG TAB SL (05:00)
[2018-11-22] MEDS ORDERED: DEXTROSE 50% 50 ML SYRINGE IV ×2 (05:30)
[2018-11-22] MEDS ORDERED: GLUCAGON 1 MG INJ IM (05:30)
[2018-11-22] MEDS ORDERED: GLUCOSE GEL 15 GRAM TUBE PO ×2 (05:30)
[2018-11-22] MEDS ORDERED: GLUCOSE GEL 15 GRAM TUBE BUCCAL (05:30)
[2018-11-22] MEDS: PANTOPRAZOLE (EC) 40 MG TAB PO (06:13)
[2018-11-22] MEDS: morphine 2 MG INJ IV ×4 (06:20→22:14)
[2018-11-22 06:33] LABS: ADD MAN DIFF? NO
[2018-11-22 06:37] LABS: BASOPHILS % 0.5 % (0.0-2.0); EOSINOPHILS # 0.2 10^3/ul (0.0-0.5); EOSINOPHILS % 1.9 % (0.0-7.0); HEMATOCRIT 34.6 % (42.0-52.0); HEMOGLOBIN 10.6 g/dl (14.0-18.0); LYMPHOCYTES # 2.1 10^3/ul (0.8-2.9); LYMPHOCYTES % 27.2 % (15.0-51.0); MEAN CORPUSCULAR HEMOGLOBIN 27.7 pg (29.0-33.0); MEAN CORPUSCULAR HGB CONC 30.6 g/dl (32.0-37.0); MEAN CORPUSCULAR VOLUME 90.6 fl (82.0-101.0); MEAN PLATELET VOLUME 9.7 fl (7.4-10.4); MONOCYTE # 0.5 10^3/ul (0.3-0.9); MONOCYTES % 6.3 % (0.0-11.0); PLATELET COUNT 182 10^3/UL (140-415); RED BLOOD COUNT 3.82 10^6/ul (4.70-6.10); RED CELL DISTRIBUTION WIDTH 14.5 % (11.5-14.5)
[2018-11-22 06:37] LABS: WHITE BLOOD COUNT 7.8 10^3/ul (4.8-10.8)
[2018-11-22 07:09] LABS: ALANINE AMINOTRANSFERASE 51 IU/L (13-69); ALBUMIN 3.8 g/dl (3.3-4.9); ALBUMIN/GLOBULIN RATIO 0.95; ALKALINE PHOSPHATASE 125 IU/L (42-121); ANION GAP 3 (5-13); ASPARTATE AMINO TRANSFERASE 37 IU/L (15-46); BILIRUBIN,INDIRECT 0.7 mg/dl (0-1.1); BILIRUBIN,TOTAL 0.7 mg/dl (0.2-1.3); BLOOD UREA NITROGEN 17 mg/dl (7-20); CALCIUM 9.1 mg/dl (8.4-10.2); CARBON DIOXIDE 35 mmol/L (21-31); CHLORIDE 102 mmol/L (97-110); CHOL/HDL RATIO 3.6 RATIO; CHOLESTEROL 121 mg/dl (100-200); Estimated GFR > 60 mL/min (>60); GLUCOSE 98 mg/dl (70-220); HDL CHOLESTEROL 33 mg/dl (28-71); LDL CHOLESTEROL,CALCULATED 67 mg/dl; POTASSIUM 3.9 mmol/L (3.5-5.1); SODIUM 140 mmol/L (135-144); TOTAL PROTEIN 7.8 g/dl (6.1-8.1); TRIGLYCERIDES 107 mg/dl (0-149)
[2018-11-22 07:11] LABS: TROPONIN-I < 0.012 ng/ml (0.000-0.120)
[2018-11-22] MEDS: INSULIN ASPART [NOVOLOG] 3 ML PEN SC ×4 (08:01→20:50)
[2018-11-22] MEDS: ASPIRIN 81 MG TAB PO (09:02)
[2018-11-22] MEDS: ENOXAPARIN 40 MG/0.4 ML SYG SC (09:03)
[2018-11-22] MEDS: SOD CHLORIDE 0.9% 100 ML (11:34)
[2018-11-22] MEDS: IOHEXOL 100 ML (11:36)
[2018-11-22] MEDS ORDERED: ASPIRIN 81 MG TAB PO (12:30)
[2018-11-22] MEDS ORDERED: glipiZIDE 5 MG TAB PO (12:30)
[2018-11-22] MEDS ORDERED: LORAZEPAM 0.5 MG TAB PO (12:30)
[2018-11-22] MEDS: METOPROLOL 50 MG TAB PO (13:23)
[2018-11-22] MEDS: FUROSEMIDE 40 MG TAB PO ×2 (13:23→18:05)
[2018-11-22] MEDS: GABAPENTIN 300 MG CAP PO ×2 (13:23→20:52)
[2018-11-22] MEDS: ACCU-CHEK XX ×2 (17:56→20:52)
[2018-11-22 19:24] LABS: TROPONIN-I < 0.012 ng/ml (0.000-0.120)
[2018-11-22] MEDS: ESCITALOPRAM 10 MG TAB PO (20:51)
[2018-11-22] MEDS: ATORVASTATIN 10 MG TAB PO (20:52)
[2018-11-22] MEDS: TERAZOSIN 1 MG CAP PO (20:52)
[2018-11-22] MEDS ORDERED: NON-FORMULARY/PATIENT OWN MED (Pravastatin Sodium* 40 MG) PO (21:00)
[2018-11-22] MEDS: ARIPIPRAZOLE 10 MG TAB PO ×2 (21:00→22:14)
[2018-11-22] MEDS: INSULIN GLARGINE [LANTus] (100 UNITS/ML) SYG SC (21:02)
[2018-11-22] MEDS: IBUPROFEN 400 MG TAB PO (22:00)
[2018-11-22] MEDS: IPRATROPIUM (NEB) 0.5 MG/2.5 ML AMP HHN (23:57)
[2018-11-23] MEDS: METOPROLOL 50 MG TAB PO ×3 (00:02→23:59)
[2018-11-23] MEDS: IBUPROFEN 400 MG TAB PO ×4 (00:03→21:57)
[2018-11-23] MEDS: ACCU-CHEK XX ×5 (02:00→20:35)
[2018-11-23] MEDS: PANTOPRAZOLE (EC) 40 MG TAB PO (06:54)
[2018-11-23] MEDS: FUROSEMIDE 40 MG TAB PO ×2 (06:54→17:35)
[2018-11-23 07:38] LABS: CHOLESTEROL 123 mg/dl (100-200)
[2018-11-23 07:38] LABS: CHOL/HDL RATIO 3.1 RATIO; HDL CHOLESTEROL 39 mg/dl (28-71); LDL CHOLESTEROL,CALCULATED 62 mg/dl; TRIGLYCERIDES 111 mg/dl (0-149)
[2018-11-23] MEDS: GABAPENTIN 300 MG CAP PO ×2 (07:56→20:36)
[2018-11-23] MEDS: ASPIRIN 81 MG TAB PO (07:56)
[2018-11-23] MEDS: morphine 2 MG INJ IV ×4 (07:57→23:17)
[2018-11-23] MEDS: ENOXAPARIN 40 MG/0.4 ML SYG SC (08:04)
[2018-11-23] MEDS: INSULIN ASPART [NOVOLOG] 3 ML PEN SC ×4 (08:05→20:35)
[2018-11-23] MEDS: TAMSULOSIN (SR) 0.4 MG CAP PO (08:06)
[2018-11-23 08:31] LABS: ANION GAP 6 (5-13); BLOOD UREA NITROGEN 19 mg/dl (7-20); CALCIUM 9.2 mg/dl (8.4-10.2); CARBON DIOXIDE 33 mmol/L (21-31); CHLORIDE 101 mmol/L (97-110); CREATININE 0.79 mg/dl (0.61-1.24); Estimated GFR > 60 mL/min (>60); GLUCOSE 142 mg/dl (70-220); POTASSIUM 4.2 mmol/L (3.5-5.1); SODIUM 140 mmol/L (135-144)
[2018-11-23] MEDS: DOCUSATE SODIUM 100 MG CAP PO (10:12)
[2018-11-23 13:58] LABS: AADO2 Arterial 17.8 mmHg (7.0-24.0); Allen Test ACCEPTAB; Arterial Base Excess 4.9 mmol/L (-3.0-3); Arterial Blood Gas Oxygen Sat 93.2 mmHG (95.0-98.0); Arterial COHb 0.6 % (0.0-3.0); Arterial Fraction of Oxyhgb 92.4 % (93.0-99.0); Arterial HCO3 31.4 mmol/L (22.0-26.0); Arterial MetHb 0.3 % (0.0-1.5); Arterial pCO2 53.6 mmhg (35-45); MODE ROOM AIR; Site Right Radial
[2018-11-23] MEDS: ESCITALOPRAM 10 MG TAB PO (20:36)
[2018-11-23] MEDS: ATORVASTATIN 10 MG TAB PO (20:36)
[2018-11-23] MEDS: ARIPIPRAZOLE 10 MG TAB PO (20:36)
[2018-11-23] MEDS: TERAZOSIN 1 MG CAP PO (20:37)
[2018-11-23] MEDS: INSULIN GLARGINE [LANTus] (100 UNITS/ML) SYG SC (20:41)
[2018-11-23] MEDS: IPRATROPIUM (NEB) 0.5 MG/2.5 ML AMP HHN (23:41)
[2018-11-24] MEDS: ACCU-CHEK XX (02:00)
[2018-11-24] MEDS: IBUPROFEN 400 MG TAB PO (06:06)
[2018-11-24] MEDS: FUROSEMIDE 40 MG TAB PO (06:06)
[2018-11-24] MEDS: PANTOPRAZOLE (EC) 40 MG TAB PO (06:06)
[2018-11-24] MEDS: morphine 2 MG INJ IV (08:02)
[2018-11-24] MEDS: INSULIN ASPART [NOVOLOG] 3 ML PEN SC (08:17)
[2018-11-24] MEDS: ASPIRIN 81 MG TAB PO (08:39)
[2018-11-24] MEDS: TAMSULOSIN (SR) 0.4 MG CAP PO (08:39)
[2018-11-24] MEDS: DOCUSATE SODIUM 100 MG CAP PO (08:39)
[2018-11-24] MEDS: GABAPENTIN 300 MG CAP PO (08:40)
[2018-11-24] MEDS: METOPROLOL 50 MG TAB PO (08:41)
[2018-11-24] MEDS: ENOXAPARIN 40 MG/0.4 ML SYG SC (08:47)
== END 2018-11-24 10:20 | disposition home health service (06) ==
LOC: E/R 23:43 → TEL 11-22 02:12
DX: R07.89 Other chest pain (principal); E66.01 Morbid (severe) obesity due to excess calories; Z68.43 Body mass index [BMI] 50.0-59.9, adult; J45.909 Unspecified asthma, uncomplicated; I10 Essential (primary) hypertension; G47.30 Sleep apnea, unspecified; E11.9 Type 2 diabetes mellitus without complications; E78.5 Hyperlipidemia, unspecified; N40.0 Benign prostatic hyperplasia without lower urinary tract symptoms; Z79.82 Long term (current) use of aspirin; I25.10 Atherosclerotic heart disease of native coronary artery without angina pectoris; Z79.4 Long term (current) use of insulin
CPT/HCPCS: 36415; 36600; 70450; 71045; 71275; 72125; 80048; 80053; 80061; 82607; 82803; 82962; 83690; 83880; 84443; 84484; 85025; 93005; 93880; 94640; 94664; 96374; 96375; 99217; 99285-25; G0378

== ENCOUNTER → 2018-11-24 | Emergency (ER) | payer OTHER | END | disposition home or self-care (01) | LOC: E/R 10:51 | DX: I10 Essential (primary) hypertension (principal); J45.901 Unspecified asthma with (acute) exacerbation; Z79.4 Long term (current) use of insulin; Z79.82 Long term (current) use of aspirin | CPT/HCPCS: 99283-25; Z7502 ==

== ENCOUNTER 2018-11-29 12:48 | Emergency (ER) | payer OTHER ==
[2018-11-29 14:04] LABS: ADD MAN DIFF? NO
[2018-11-29 14:11] LABS: BASOPHILS % 0.4 % (0.0-2.0); EOSINOPHILS # 0.2 10^3/ul (0.0-0.5); EOSINOPHILS % 2.6 % (0.0-7.0); HEMATOCRIT 33.6 % (42.0-52.0); HEMOGLOBIN 10.6 g/dl (14.0-18.0); LYMPHOCYTES # 1.8 10^3/ul (0.8-2.9); LYMPHOCYTES % 23.4 % (15.0-51.0); MEAN CORPUSCULAR HGB CONC 31.5 g/dl (32.0-37.0); MEAN CORPUSCULAR VOLUME 88.9 fl (82.0-101.0); MEAN PLATELET VOLUME 9.6 fl (7.4-10.4); MONOCYTE # 0.4 10^3/ul (0.3-0.9); MONOCYTES % 4.9 % (0.0-11.0); NEUTROPHIL # 5.3 10^3/ul (1.6-7.5); NEUTROPHILS % 68.4 % (39.0-77.0); PLATELET COUNT 168 10^3/UL (140-415); RED BLOOD COUNT 3.78 10^6/ul (4.70-6.10); RED CELL DISTRIBUTION WIDTH 14.2 % (11.5-14.5)
[2018-11-29 14:11] LABS: WHITE BLOOD COUNT 7.8 10^3/ul (4.8-10.8)
[2018-11-29] MEDS: LIDOCAINE/MYLANTA 40 ML BTL PO (14:24)
[2018-11-29 14:26] LABS: ANION GAP 7 (5-13); BLOOD UREA NITROGEN 17 mg/dl (7-20); CALCIUM 9.4 mg/dl (8.4-10.2); CARBON DIOXIDE 32 mmol/L (21-31); CHLORIDE 97 mmol/L (97-110); CREATININE 0.73 mg/dl (0.61-1.24); Estimated GFR > 60 mL/min (>60); GLUCOSE 119 mg/dl (70-220); SODIUM 136 mmol/L (135-144)
[2018-11-29 14:27] LABS: LIPASE 100 U/L (23-300)
[2018-11-29 14:38] LABS: B-TYPE NATRIURETIC PEPTIDE 67 PG/ML (0-125); TROPONIN-I < 0.012 ng/ml (0.000-0.120)
[2018-11-29] MEDS ORDERED: KETOROLAC 15 MG INJ IM (15:32)
== END 2018-11-29 16:00 | disposition left against medical advice (07) ==
LOC: E/R 12:48
DX: I10 Essential (primary) hypertension (principal); J45.909 Unspecified asthma, uncomplicated; E11.9 Type 2 diabetes mellitus without complications; Z79.4 Long term (current) use of insulin; Z79.82 Long term (current) use of aspirin
CPT/HCPCS: 71045; 80048; 83690; 83880; 84484; 85025; 93005; 99285-25

== ENCOUNTER 2018-12-15 14:55 | Emergency (ER) | payer OTHER ==
[2018-12-15 15:55] LABS: ADD MAN DIFF? NO
[2018-12-15 16:00] LABS: BASOPHIL # 0.1 10^3/ul (0.0-0.1); BASOPHILS % 0.6 % (0.0-2.0); EOSINOPHILS % 0.4 % (0.0-7.0); HEMATOCRIT 34.7 % (42.0-52.0); HEMOGLOBIN 10.9 g/dl (14.0-18.0); LYMPHOCYTES # 3.2 10^3/ul (0.8-2.9); LYMPHOCYTES % 35.3 % (15.0-51.0); MEAN CORPUSCULAR HEMOGLOBIN 28.2 pg (29.0-33.0); MEAN CORPUSCULAR HGB CONC 31.4 g/dl (32.0-37.0); MEAN CORPUSCULAR VOLUME 89.9 fl (82.0-101.0); MEAN PLATELET VOLUME 9.7 fl (7.4-10.4); MONOCYTE # 0.6 10^3/ul (0.3-0.9); MONOCYTES % 6.9 % (0.0-11.0); NEUTROPHIL # 5.1 10^3/ul (1.6-7.5); NEUTROPHILS % 56.6 % (39.0-77.0); PLATELET COUNT 194 10^3/UL (140-415); RED BLOOD COUNT 3.86 10^6/ul (4.70-6.10); RED CELL DISTRIBUTION WIDTH 14.7 % (11.5-14.5)
[2018-12-15 16:05] LABS: ANION GAP 10 (5-13); BLOOD UREA NITROGEN 30 mg/dl (7-20); CALCIUM 9.4 mg/dl (8.4-10.2); CARBON DIOXIDE 30 mmol/L (21-31); CHLORIDE 99 mmol/L (97-110); CREATININE 0.86 mg/dl (0.61-1.24); Estimated GFR > 60 mL/min (>60); GLUCOSE 178 mg/dl (70-220); POTASSIUM 3.7 mmol/L (3.5-5.1); SODIUM 139 mmol/L (135-144)
[2018-12-15 16:17] LABS: TROPONIN-I < 0.012 ng/ml (0.000-0.120)
[2018-12-15] MEDS: KETOROLAC 15 MG INJ IV (16:28)
[2018-12-15] MEDS: ACETAMINOPHEN 325 MG TAB PO (19:07)
== END 2018-12-16 04:40 | disposition home or self-care (01) ==
LOC: E/R 12-16 04:40
DX: I10 Essential (primary) hypertension (principal); J45.901 Unspecified asthma with (acute) exacerbation; Z79.82 Long term (current) use of aspirin; Z79.84 Long term (current) use of oral hypoglycemic drugs
CPT/HCPCS: 36415; 71045; 80048; 84484; 85025; 93005; 96374; 99285-25

== ENCOUNTER 2018-12-22 16:14 | Inpatient (IN) | payer OTHER ==
[2018-12-22 17:14] LABS: ADD MAN DIFF? NO
[2018-12-22 17:19] LABS: BASOPHILS % 0.3 % (0.0-2.0); EOSINOPHILS # 0.1 10^3/ul (0.0-0.5); EOSINOPHILS % 1.6 % (0.0-7.0); HEMATOCRIT 34.6 % (42.0-52.0); HEMOGLOBIN 10.9 g/dl (14.0-18.0); LYMPHOCYTES # 1.3 10^3/ul (0.8-2.9); MEAN CORPUSCULAR HEMOGLOBIN 27.7 pg (29.0-33.0); MEAN CORPUSCULAR HGB CONC 31.5 g/dl (32.0-37.0); MEAN CORPUSCULAR VOLUME 87.8 fl (82.0-101.0); MEAN PLATELET VOLUME 9.4 fl (7.4-10.4); MONOCYTE # 0.4 10^3/ul (0.3-0.9); MONOCYTES % 5.6 % (0.0-11.0); NEUTROPHIL # 5.6 10^3/ul (1.6-7.5); NEUTROPHILS % 74.4 % (39.0-77.0); PLATELET COUNT 187 10^3/UL (140-415); RED BLOOD COUNT 3.94 10^6/ul (4.70-6.10); RED CELL DISTRIBUTION WIDTH 14.4 % (11.5-14.5)
[2018-12-22 17:19] LABS: WHITE BLOOD COUNT 7.5 10^3/ul (4.8-10.8)
[2018-12-22 17:35] LABS: ANION GAP 7 (5-13); BLOOD UREA NITROGEN 13 mg/dl (7-20); CALCIUM 9.2 mg/dl (8.4-10.2); CARBON DIOXIDE 28 mmol/L (21-31); CHLORIDE 100 mmol/L (97-110); CREATININE 0.69 mg/dl (0.61-1.24); Estimated GFR > 60 mL/min (>60); GLUCOSE 211 mg/dl (70-220); POTASSIUM 4.1 mmol/L (3.5-5.1); SODIUM 135 mmol/L (135-144)
[2018-12-22 17:39] LABS: INR 1.52; PROTIME 18.4 Sec (11.9-14.9); PT RATIO 1.4
[2018-12-22 17:40] LABS: PARTIAL THROMBOPLASTIN TIME 34.4 Sec (23.0-35.0)
[2018-12-22 17:47] LABS: B-TYPE NATRIURETIC PEPTIDE 28 PG/ML (0-125); TROPONIN-I < 0.012 ng/ml (0.000-0.120)
[2018-12-22] MEDS: KETOROLAC 15 MG INJ IV (18:14)
[2018-12-22] MEDS ORDERED: VANCOMYCIN IV PER PHARMACY XX ×2 (18:30→23:00)
[2018-12-22 19:47] LABS: LACTIC ACID 1.5 mmol/L (0.5-2.0)
[2018-12-22] MEDS ORDERED: ONDANSETRON 4 MG INJ IV ×2 (20:00→23:00)
[2018-12-22] MEDS ORDERED: ACETAMINOPHEN 325 MG TAB PO ×2 (20:00→23:00)
[2018-12-22] MEDS: CEFAZOLIN 1 GM/50 ML (PMX) 50 ML IVPB (22:28)
[2018-12-22 23:01] LABS: LACTIC ACID 1.2 mmol/L (0.5-2.0)
[2018-12-22] MEDS: HYDROCODONE/APAP (5/325) TAB PO (23:19)
[2018-12-23] MEDS: VANCOMYCIN HCL 2 GM in SOD CHLORIDE 0.9% 500 ML IVPB (00:24)
[2018-12-23] MEDS: LORAZEPAM 0.5 MG TAB PO ×3 (00:29→20:21)
[2018-12-23] MEDS: PANTOPRAZOLE 40 MG INJ IV (05:41)
[2018-12-23] MEDS: HYDROCODONE/APAP (5/325) TAB PO ×2 (05:41→20:21)
[2018-12-23 05:45] LABS: ADD MAN DIFF? NO
[2018-12-23 05:56] LABS: WHITE BLOOD COUNT 6.3 10^3/ul (4.8-10.8)
[2018-12-23 05:56] LABS: BASOPHILS % 0.3 % (0.0-2.0); EOSINOPHILS # 0.1 10^3/ul (0.0-0.5); EOSINOPHILS % 2.2 % (0.0-7.0); HEMATOCRIT 34.3 % (42.0-52.0); HEMOGLOBIN 10.7 g/dl (14.0-18.0); LYMPHOCYTES # 1.7 10^3/ul (0.8-2.9); LYMPHOCYTES % 26.8 % (15.0-51.0); MEAN CORPUSCULAR HEMOGLOBIN 27.9 pg (29.0-33.0); MEAN CORPUSCULAR HGB CONC 31.2 g/dl (32.0-37.0); MEAN CORPUSCULAR VOLUME 89.3 fl (82.0-101.0); MEAN PLATELET VOLUME 9.4 fl (7.4-10.4); MONOCYTE # 0.5 10^3/ul (0.3-0.9); MONOCYTES % 7.8 % (0.0-11.0); NEUTROPHIL # 3.9 10^3/ul (1.6-7.5); NEUTROPHILS % 62.6 % (39.0-77.0); PLATELET COUNT 169 10^3/UL (140-415); RED BLOOD COUNT 3.84 10^6/ul (4.70-6.10); RED CELL DISTRIBUTION WIDTH 14.5 % (11.5-14.5)
[2018-12-23 06:20] LABS: ANION GAP 5 (5-13); BLOOD UREA NITROGEN 17 mg/dl (7-20); CALCIUM 9.4 mg/dl (8.4-10.2); CARBON DIOXIDE 31 mmol/L (21-31); CHLORIDE 101 mmol/L (97-110); CREATININE 0.63 mg/dl (0.61-1.24); Estimated GFR > 60 mL/min (>60); GLUCOSE 128 mg/dl (70-220); POTASSIUM 4.1 mmol/L (3.5-5.1); SODIUM 137 mmol/L (135-144)
[2018-12-23] MEDS ORDERED: glipiZIDE 10 MG TAB PO (07:30)
[2018-12-23] MEDS: ACCU-CHEK XX ×4 (07:30→21:00)
[2018-12-23] MEDS: INSULIN ASPART [NOVOLOG] 3 ML PEN SC ×4 (08:00→21:00)
[2018-12-23] MEDS: ARIPIPRAZOLE 2 MG TAB GTB (08:45)
[2018-12-23] MEDS: FUROSEMIDE 40 MG TAB PO (08:47)
[2018-12-23] MEDS: METOPROLOL 100 MG TAB PO (08:47)
[2018-12-23] MEDS: ASPIRIN (EC) 81 MG TAB PO (08:48)
[2018-12-23] MEDS: GABAPENTIN 300 MG CAP PO ×2 (08:48→21:41)
[2018-12-23] MEDS: CEFEPIME 1GM/50 ML (PMX) 50 ML IVPB ×2 (08:49→21:41)
[2018-12-23] MEDS ORDERED: GLUCOSE GEL 15 GRAM TUBE BUCCAL (12:00)
[2018-12-23] MEDS ORDERED: VANCOMYCIN 1.5 GM/NS 250 ML 250 ML IVPB (12:00)
[2018-12-23] MEDS ORDERED: GLUCOSE GEL 15 GRAM TUBE PO ×2 (12:00)
[2018-12-23] MEDS ORDERED: DEXTROSE 50% 50 ML SYRINGE IV ×2 (12:00)
[2018-12-23] MEDS ORDERED: GLUCAGON 1 MG INJ IM (12:00)
[2018-12-23] MEDS: VANCOMYCIN HCL 1.75 GM in SOD CHLORIDE 0.9% 500 ML IVPB ×2 (12:12→23:38)
[2018-12-23] MEDS: LINAGLIPTIN 5 MG TABLET PO (12:13)
[2018-12-23] MEDS: ENOXAPARIN 40 MG/0.4 ML SYG SC (13:03)
[2018-12-23] MEDS: TERAZOSIN 2 MG CAP PO (21:41)
[2018-12-23] MEDS: ATORVASTATIN 20 MG TAB PO (21:41)
[2018-12-23] MEDS: INSULIN GLARGINE [LANTus] (100 UNITS/ML) SYG SC (21:42)
[2018-12-24] MEDS: KETOROLAC 15 MG INJ IV ×2 (01:49→15:53)
[2018-12-24] MEDS: morphine 2 MG INJ IV (02:29)
[2018-12-24] MEDS ORDERED: NITROGLYCERIN (SL) 0.4 MG TAB SL (02:30)
[2018-12-24] MEDS: LORAZEPAM 2 MG INJ IV (02:54)
[2018-12-24 03:07] LABS: ADD MAN DIFF? NO
[2018-12-24 03:10] LABS: WHITE BLOOD COUNT 7.4 10^3/ul (4.8-10.8)
[2018-12-24 03:10] LABS: BASOPHILS % 0.3 % (0.0-2.0); EOSINOPHILS # 0.1 10^3/ul (0.0-0.5); EOSINOPHILS % 1.8 % (0.0-7.0); HEMATOCRIT 33.9 % (42.0-52.0); HEMOGLOBIN 10.6 g/dl (14.0-18.0); LYMPHOCYTES # 1.5 10^3/ul (0.8-2.9); LYMPHOCYTES % 20.9 % (15.0-51.0); MEAN CORPUSCULAR HEMOGLOBIN 27.8 pg (29.0-33.0); MEAN CORPUSCULAR HGB CONC 31.3 g/dl (32.0-37.0); MEAN PLATELET VOLUME 9.7 fl (7.4-10.4); MONOCYTE # 0.4 10^3/ul (0.3-0.9); NEUTROPHIL # 5.2 10^3/ul (1.6-7.5); NEUTROPHILS % 70.9 % (39.0-77.0); PLATELET COUNT 147 10^3/UL (140-415); RED BLOOD COUNT 3.81 10^6/ul (4.70-6.10); RED CELL DISTRIBUTION WIDTH 14.5 % (11.5-14.5)
[2018-12-24 03:29] LABS: CREATINE KINASE 37 IU/L (23-200)
[2018-12-24 03:30] LABS: ANION GAP 5 (5-13); BLOOD UREA NITROGEN 18 mg/dl (7-20); CALCIUM 9.1 mg/dl (8.4-10.2); CARBON DIOXIDE 31 mmol/L (21-31); CHLORIDE 100 mmol/L (97-110); CREATININE 0.68 mg/dl (0.61-1.24); Estimated GFR > 60 mL/min (>60); GLUCOSE 189 mg/dl (70-220); POTASSIUM 4.2 mmol/L (3.5-5.1); SODIUM 136 mmol/L (135-144)
[2018-12-24 03:32] LABS: HEMOGLOBIN A1C 6.1 % (0-5.9)
[2018-12-24 03:33] LABS: INR 1.34; PROTIME 16.7 Sec (11.9-14.9); PT RATIO 1.3
[2018-12-24 03:34] LABS: PARTIAL THROMBOPLASTIN TIME 29.8 Sec (23.0-35.0)
[2018-12-24 03:38] LABS: IRON 68 ug/dl (35-150)
[2018-12-24 03:41] LABS: CK INDEX 1.6; TROPONIN-I < 0.012 ng/ml (0.000-0.120)
[2018-12-24 03:47] LABS: % IRON SATURATION 18 % SAT (22-52); TOTAL IRON BINDING CAPACITY 370 ug/dl (241-421)
[2018-12-24] MEDS: ASPIRIN 325 MG TAB PO (04:10)
[2018-12-24] MEDS: CLOPIDOGREL 75 MG TAB PO (04:27)
[2018-12-24] MEDS: PANTOPRAZOLE (EC) 40 MG TAB PO (06:07)
[2018-12-24] MEDS ORDERED: NITROGLYCERIN AEROSOL (4.9 GM) (07:00)
[2018-12-24] MEDS: INSULIN ASPART [NOVOLOG] 3 ML PEN SC ×4 (08:00→21:04)
[2018-12-24] MEDS: ACCU-CHEK XX ×4 (08:05→21:00)
[2018-12-24] MEDS: CEFEPIME 1GM/50 ML (PMX) 50 ML IVPB (08:37)
[2018-12-24] MEDS: LORAZEPAM 0.5 MG TAB PO ×2 (08:38→21:13)
[2018-12-24] MEDS: ARIPIPRAZOLE 2 MG TAB GTB (08:38)
[2018-12-24] MEDS: GABAPENTIN 300 MG CAP PO ×2 (08:39→21:05)
[2018-12-24] MEDS: LINAGLIPTIN 5 MG TABLET PO (08:40)
[2018-12-24] MEDS: METOPROLOL 100 MG TAB PO (08:41)
[2018-12-24] MEDS: FUROSEMIDE 40 MG TAB PO (08:41)
[2018-12-24] MEDS: ENOXAPARIN 40 MG/0.4 ML SYG SC (08:43)
[2018-12-24 08:52] LABS: CREATINE KINASE 30 IU/L (23-200)
[2018-12-24 09:06] LABS: CK INDEX 1.5; CK-MB 0.46 ng/ml (0.0-2.4); TROPONIN-I < 0.012 ng/ml (0.000-0.120)
[2018-12-24] MEDS: CEPHALEXIN 500 MG CAP PO ×2 (12:18→21:13)
[2018-12-24] MEDS: HYDROCODONE/APAP (5/325) TAB PO ×2 (12:18→22:11)
[2018-12-24 15:22] LABS: CREATINE KINASE 34 IU/L (23-200)
[2018-12-24 15:35] LABS: CK INDEX 1.1; CK-MB 0.36 ng/ml (0.0-2.4); TROPONIN-I < 0.012 ng/ml (0.000-0.120)
[2018-12-24] MEDS: INSULIN GLARGINE [LANTus] (100 UNITS/ML) SYG SC (21:04)
[2018-12-24] MEDS: ATORVASTATIN 20 MG TAB PO (21:05)
[2018-12-24] MEDS: TERAZOSIN 2 MG CAP PO (21:06)
[2018-12-25] MEDS: LORAZEPAM 0.5 MG TAB PO ×2 (04:48→13:59)
[2018-12-25] MEDS: PANTOPRAZOLE (EC) 40 MG TAB PO (05:11)
[2018-12-25] MEDS: CEPHALEXIN 500 MG CAP PO ×2 (05:11→13:59)
[2018-12-25] MEDS: HYDROCODONE/APAP (5/325) TAB PO ×2 (07:06→18:16)
[2018-12-25] MEDS: ACCU-CHEK XX ×3 (07:30→17:21)
[2018-12-25] MEDS: INSULIN ASPART [NOVOLOG] 3 ML PEN SC ×3 (08:00→17:20)
[2018-12-25] MEDS: FUROSEMIDE 40 MG TAB PO (08:39)
[2018-12-25] MEDS: ASPIRIN 325 MG TAB PO (08:39)
[2018-12-25] MEDS: GABAPENTIN 300 MG CAP PO (08:39)
[2018-12-25] MEDS: ARIPIPRAZOLE 2 MG TAB GTB (08:39)
[2018-12-25] MEDS: METOPROLOL 100 MG TAB PO (08:39)
[2018-12-25] MEDS: LINAGLIPTIN 5 MG TABLET PO (08:39)
[2018-12-25] MEDS: ENOXAPARIN 40 MG/0.4 ML SYG SC (08:41)
[2018-12-25] MEDS ORDERED: CLOPIDOGREL 75 MG TAB PO (09:00)
[2018-12-25] MEDS: IOHEXOL 100 ML (12:38)
[2018-12-25] MEDS: SOD CHLORIDE 0.9% 100 ML (12:38)
[2018-12-25] MEDS: INSULIN GLARGINE [LANTus] (100 UNITS/ML) SYG SC (20:00)
== END 2018-12-25 20:30 | disposition left against medical advice (07) | DRG 603 ==
LOC: PP2 12-23 16:18 → E/R 16:14 → PP2 19:43
DX: L03.115 Cellulitis of right lower limb (principal); Z68.43 Body mass index [BMI] 50.0-59.9, adult; E11.8 Type 2 diabetes mellitus with unspecified complications; E11.40 Type 2 diabetes mellitus with diabetic neuropathy, unspecified; I50.9 Heart failure, unspecified; I11.0 Hypertensive heart disease with heart failure; E78.5 Hyperlipidemia, unspecified; N40.0 Benign prostatic hyperplasia without lower urinary tract symptoms; D64.9 Anemia, unspecified; E66.9 Obesity, unspecified; F32.9 Major depressive disorder, single episode, unspecified; I25.10 Atherosclerotic heart disease of native coronary artery without angina pectoris; J45.909 Unspecified asthma, uncomplicated; F41.9 Anxiety disorder, unspecified; K43.9 Ventral hernia without obstruction or gangrene; Z79.4 Long term (current) use of insulin; Z79.82 Long term (current) use of aspirin; Z53.21 Procedure and treatment not carried out due to patient leaving prior to being seen by health care provider
CPT/HCPCS: 36415; 70450; 70496; 70498; 71045; 73590; 80048; 80202; 82550; 82553; 82962; 83036; 83540; 83605; 83880; 84484; 85025; 85610; 85730; 87040-91; 87070; 93005; 93308; 93922; 93970; 96374; 96375; 97162; 97167; 99285-25